=== PATIENT | male | born 1995 | race Caucasian/White ===

== ENCOUNTER 2020-12-16 10:06 | Emergency (ER) | payer OTHER ==
--- NOTE | 2020-12-16 11:54 | EDM.PDOC ---
ED HPI GENERAL MEDICAL PROBLEM - General Chief Complaint: Upper Extremity Injury/Pain Stated Complaint: RT KNUCKLE BROKEN Time Seen by Provider: 12/16/20 11:30 Source of Information: Reports: Patient History Limitations: Reports: No Limitations - History of Present Illness INITIAL COMMENTS - FREE TEXT/NARRATIVE: 25-year-old male presents the emergency department complaints of right fifth knuckle pain. Per the patient report he states that 5 nights ago he punched a wall while he was intoxicated. Patient states that he has had pain and swelling noted to the fifth knuckle ever since then he is unable to completely straighten out his right fifth digit. Patient states he has history of previous boxer fracture at that site. Patient states he is otherwise healthy. He does vape for the past 12 years. Patient states he drinks alcohol on the weekends. He denies any recreational drug use. He states he is otherwise healthy and does not have any other past medical history and does not take any prescription medications. Right Finger-Index Pain Score (Numeric/FACES): 5 - Related Data Allergies Allergy/AdvReac Type Severity Reaction Status Date / Time No Known Allergies Allergy Verified 12/16/20 11:31 Home Meds: Home Meds . [No Known Home Meds] 12/16/20 [History] Past Medical History - Past Surgical History Musculoskeletal Surgical History: Reports: Other (See Below) Other Musculoskeletal Surgeries/Procedures:: right hand surgery Social & Family History - Tobacco Use Tobacco Use Status *Q: Current Every Day Tobacco User Years of Tobacco use: 5 Packs/Tins Daily: 1 - Recreational Drug Use Recreational Drug Use: No Review of Systems - Review of Systems Review Of Systems: Comprehensive ROS is negative, except as noted in HPI. ED EXAM, GENERAL - Physical Exam Exam: See Below Exam Limited By: No Limitations General Appearance: Alert, WD/WN, No Apparent Distress Ears: Normal External Exam, Hearing Grossly Normal Nose: Normal Inspection Throat/Mouth: Normal Inspection, Normal Lips, Normal Voice, No Airway Compromise Head: Atraumatic Neck: Normal Inspection, Supple Respiratory/Chest: No Respiratory Distress, No Accessory Muscle Use Cardiovascular: Normal Peripheral Pulses, Regular Rate, Rhythm Peripheral Pulses: 2+: Radial (L), Radial (R) GI/Abdominal: No Distention (Male) Exam: Deferred Rectal (Males) Exam: Deferred Back Exam: Normal Inspection Extremities: Normal Capillary Refill. No: Normal Inspection (Only noted to lateral aspect of right hand just below the fifth knuckle), Normal Range of Motion (Patient is unable to fully extend right fifth finger), Non-Tender (Tenderness noted to the area of swelling on right lateral aspect of hand) Neurological: Alert, Oriented, Normal Cognition Psychiatric: Normal Affect, Normal Mood Skin Exam: Warm, Dry, Intact, Normal Color, No Rash Lymphatic: No Adenopathy Course - Vital Signs Text/Narrative:: As stated above, patient presents with pain to the right fifth knuckle. Sustained an injury after he punched a wall 5 nights ago while he was intoxicated. Upon assessment, the patient is unable to straighten out his right fifth digit however he can bend it without difficulty. CMS is positive to the distal aspect of the right fifth digit. He does have swelling noted lateral aspect of the right dorsal hand just below the fifth knuckle. Obtain an x-ray of the right hand. Last Recorded V/S: Last Vital Signs Temp 97 F 12/16/20 11:28 Pulse 79 12/16/20 11:28 Resp 16 12/16/20 11:28 BP 131/88 12/16/20 11:28 Pulse Ox 98 12/16/20 11:28 - Re-Assessments/Exams Free Text/Narrative Re-Assessment/Exam: 12/16/20 12:08 Radiologist impression 4 view of the right hand: 1. Deformity from old fracture with appears healed within the fifth metacarpal. 2. No acute osseous abnormality is otherwise seen. Patient will be discharged home with recommendation that he take Tylenol or ibuprofen as needed for comfort, he can ice the area and rest. Departure - Departure Time of Disposition: 12:08 Disposition: Home, Self-Care 01 Condition: Good Clinical Impression: Contusion of hand, right Qualifiers: Encounter type: initial encounter Qualified Code(s): S60.221A - Contusion of right hand, initial encounter - Discharge Information Instructions: Hand Contusion Referrals: PCP,Not In Area [Primary Care Provider] - Forms: ED Department Discharge Additional Instructions: You were seen in the emergency department today with an injury to your right hand. X-rays were completed and it does not show a new fracture however it does show an old fracture. Likely that you have a contusion. Recommend that you take ibuprofen 600 mg every 8 hours to decrease inflammation and pain. Ice the area 30 minutes at a time every 3 hours while awake. Sepsis Event Note (ED) - Evaluation Sepsis Screening Result: No Definite Risk - Focused Exam Vital Signs: Vital Signs Temp Pulse Resp BP Pulse Ox 12/16/20 11:28 97 F 79 16 131/88 98
--- NOTE | 2020-12-16 12:04 | CR ---
Right hand: 4 views of the right hand were obtained. Comparison: No prior hand study is available. Deformity is noted within the fifth metacarpal compatible with old healed fracture. Joint spaces are fairly well preserved. No acute fracture, dislocation or other bony abnormality is seen. Impression: 1. Deformity from old fracture which appears healed within the fifth metacarpal. 2. No acute osseous abnormality is otherwise seen. Diagnostic code #2
== END 2020-12-16 12:30 | disposition home or self-care (01) ==
LOC: JD.ED 10:06
DX: S60.221A Contusion of right hand, initial encounter (principal); Z72.0 Tobacco use; W22.09XA Striking against other stationary object, initial encounter
CPT/HCPCS: 73130-26-RT; 73130-RT; 99282; 99283-25